=== PATIENT | female | born 1995 | race Caucasian/White ===

== ENCOUNTER 2016-11-05 08:30 | Day surgery (SDC) | payer OTHER ==
[2016-11-04 14:51] VITALS: BMI 24.6
[2016-11-05] VITALS (14 sets, daily range): BP systolic 95–105; BP diastolic 58–70; PULSE 58–70; RESP 16–25; Ht 152.4 cm; Wt 63.6 kg
[~2016-11-05] VITALS: Ht 152.4 cm; Wt 63.6 kg
[~2016-11-05 08:30] MED LIST: ATROPINE 1 MG/10 ML SYRINGE IV PRN; BUPIVACAINE 0.25% (MPF) 30 ML INJ ONE; DIPHENHYDRAMINE 50 MG INJ IV PRN; EPHEDrine SULFATE 50 MG/5 ML SYG IV PRN; FENTAnyl 50 MCG/ML VIAL IV PRN; HYDROmorphONE (0.2 MG/ML) 10ML SYG IV PRN; LABETALOL HCL 20MG INJ IV PRN; MEPERIDINE 25 MG INJ IV PRN; MIDAZOLAM 1 MG/ML 2 ML INJ IV PRN; ONDANSETRON 4 MG INJ IV PRN; OXYCODONE/ACETAMINOPHEN (5/325) TAB PO PRN; hydrALAzine 20 MG INJ IV PRN; morphine (1 MG/ML) 10ML SYRINGE IV PRN
[2016-11-05] MEDS ORDERED: ROCURONIUM 50 MG INJ ONE (11:21)
[2016-11-05] MEDS ORDERED: GLYCOPYRROLATE 0.4 MG INJ ONE (11:21)
[2016-11-05] MEDS ORDERED: PROPOFOL 20 ML ONE (11:21)
[2016-11-05] MEDS ORDERED: MIDAZOLAM 1 MG/ML 2 ML INJ ONE (11:21)
[2016-11-05] MEDS ORDERED: NEOSTIGMINE 3 MG/3 ML SYRINGE ONE (11:21)
[2016-11-05] MEDS ORDERED: FENTAnyl 50 MCG/ML VIAL ONE (11:21)
[2016-11-05] MEDS ORDERED: LIDOCAINE 2% (SDV) 5 ML INJ ONE (11:21)
[2016-11-05] MEDS ORDERED: DEXAMETHASONE 4 MG/ML 1 ML INJ ONE (11:23)
[2016-11-05] MEDS ORDERED: SUCCINYLCHOLINE CHLORIDE 100 MG/5 ML SYG IV ONE (11:23)
[2016-11-05] MEDS ORDERED: ONDANSETRON 4 MG INJ ONE (11:24)
[2016-11-05] MEDS ORDERED: CEFAZOLIN 1 GM INJ ONE (11:25)
[2016-11-05] MEDS ORDERED: HYDROCODONE/APAP (5/325) TAB PO ONE (11:30)
--- NOTE | 2016-11-05 11:32 | SIPON ---
Date/Time of Note Date/Time of Note DATE: 11/05/16 TIME: 11:31 Operative Report Preoperative Diagnosis right breast tumor Postoperative Diagnosis same Operation/Procedure Performed 1. excision of right breast tumor 5 cm incision 5 cm tumor 2. localized adjacent tissue transfer with the use of skin flaps 10 sq cm defect 3. therapeutic subcutaneous injection of local anesthesia Surgeon see signature line human resource assistant none Anesthesia: general Estimated blood loss: 0 - 10 ml's Transfusion Required none Specimen right breast tumor Grafts/Implants none Complications none Kameron REYES Nov 05, 2016 11:32
--- NOTE | 2016-11-05 12:51 | OPR ---
DATE OF OPERATION: 11/05/2016 INDICATION: This is a 21-year-old female with symptomatic and painful right breast tumor. She requests surgical excision. Risks, alternatives, benefits, and personnel were discussed with the patient. Patient expressed understanding and consents to the operation. POSTOPERATIVE DIAGNOSIS: Right breast tumor. POSTOPERATIVE DIAGNOSIS: Right breast tumor. OPERATION PERFORMED: 1. Excision of right breast tumor with 5 cm size incision and 5 cm size mass. 2. Localized adjacent tissue transfer with use of skin flaps of 10 square cm defect. 3. Therapeutic subcutaneous local anesthesia injection. SURGEON: Stone Cardoso. SPECIMEN: Right breast tumor. COMPLICATIONS: None. ANESTHESIA: General. OPERATIVE PROCEDURE: Patient taken to the OR, and prepped and draped in usual sterile fashion. Surgical time-out was performed. IV antibiotics were given. In the right breast lower outer position, a radial incision was made with a 10 blade over the mass. Dissection cautery was carried down to the mass and the mass was circumferentially excised. The mass was also adherent to the chest wall and was dissected off the chest wall. There was good hemostasis. Due to the large tissue defect, localized adjacent tissue transfer skin flap was performed. Multilayered closure with interrupted 3-0 Vicryl and running 4-0 Monocryl. Therapeutic subcutaneous local anesthesia was injected throughout the incision. Dry dressings were applied. Dictated By: Stone Cardoso /raquel/lyn /Document#: [id number]
== END 2016-11-05 13:30 | disposition home or self-care (01) ==
LOC: SDS 08:30
PROVIDERS: ATTEND Surgery
DX: D24.1 Benign neoplasm of right breast (principal)
CPT/HCPCS: 14000; 19120; 84703; 88307; J0690; J2175; J2250; J2405; J3010; Z7512; Z7610; J1100; J2710; J7999